=== PATIENT | female | born 1950 | race Caucasian/White ===

== ENCOUNTER → 2020-12-14 | Outpatient (CLI) | payer MEDICARE | LOC: US 07:29 | PROVIDERS: ATTEND Internal Medicine Nephrology | DX: N18.31 Chronic kidney disease, stage 3a (principal) | CPT/HCPCS: 76770; 76857 ==

== ENCOUNTER → 2022-05-15 | Outpatient (CLI) | payer MEDICARE | LOC: MRI 07:33 | PROVIDERS: ATTEND Anesthesiology | DX: M43.07 Spondylolysis, lumbosacral region (principal); M25.511 Pain in right shoulder | CPT/HCPCS: 72146; 72148 ==